=== PATIENT | male | born 1970 ===

== ENCOUNTER 2017-04-27 13:16 | Emergency (ER) | payer MEDICAID ==
[2017-04-27 13:34] VITALS: BP 142/80; PULSE 60; RESP 18; TEMP 97.9; O2SAT 99
[2017-04-27 13:49] VITALS: BMI 22.8
[2017-04-27] MEDS ORDERED: Erythromycin 0.5% Ophth Oint 1 APPLIC/3.5 G OD STA (14:07)
--- NOTE | 2017-04-27 14:10 | C.PDOC ---
History Of Present Illness 46 y/o male presents to ED with complaints of right eyelid swelling and redness for 5 days. 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 Patient denies vision changes, discharge, direct injury or any other complaints at this time. Time Seen by Provider: 04/27/17 13:51 Chief Complaint (Nursing): Allergic Reaction History Per: Patient History/Exam Limitations: no limitations Onset/Duration Of Symptoms: Days Current Symptoms Are (Timing): Still Present Possible Cause: Unknown Past Medical History Reviewed: Historical Data, Nursing Documentation, Vital Signs Vital Signs: Last Vital Signs Temp 97.9 F 04/27/17 13:32 Pulse 60 04/27/17 13:32 Resp 18 04/27/17 13:32 BP 142/80 04/27/17 13:32 Pulse Ox 99 04/29/17 14:00 - Medical History PMH: Diabetes, HTN, Hypercholesterolemia Surgical History: No Surg Hx - [facility] Procedures CLOSURE SKIN & SUBCUTANEOUS NEC (02/28/14) Family History: States: No Known Family Hx - Social History Hx Tobacco Use: No Hx Alcohol Use: Yes Hx Substance Use: No - Immunization History Hx Tetanus Toxoid Vaccination: No Hx Influenza Vaccination: No Hx Pneumococcal Vaccination: No Review Of Systems Except As Marked, All Systems Reviewed And Found Negative. Eyes: Positive for: Pain, Eyelid Inflammation, Redness Physical Exam - Physical Exam Appears: Non-toxic, No Acute Distress Skin: Warm, Dry, Rash ((+) macular, eythema rash to face adjacent to right eye, no proptosis, no cellultic process, no abscess ) Head: Atraumatic, Normacephalic Eye(s): bilateral: PERRL, EOMI, right: Eyelid Inflammation, left: Normal Inspection, Other (no ocular involvement ) Ear(s): Bilateral: Normal Throat: Normal, No Erythema, No Exudate Neck: Normal ROM, Supple Cardiovascular: Rhythm Regular Respiratory: Normal Breath Sounds, No Rales, No Rhonchi, No Wheezing Gastrointestinal/Abdominal: Soft, No Tenderness, No Guarding, No Rebound Back: Normal Inspection Neurological/Psych: Oriented x3 ED Course And Treatment O2 Sat by Pulse Oximetry: 99 (RA) Pulse Ox Interpretation: Normal Disposition Counseled Patient/Family Regarding: Diagnosis, Need For Followup, Rx Given - Disposition Referrals: [facility] [Outside] Disposition: HOME/ ROUTINE Disposition Time: 14:08 Condition: STABLE Additional Instructions: follow up with your doctor in 2 days call to make an appointment take medications as prescribed return to ER if symptoms worsens or progress Prescriptions: Erythromycin 0.5% [Ilytocin] 3.5 gm OD QID #1 tube Hydrocortisone 1% Cream [Cortizone 1% Cream] 1 appl TP BID PRN #1 tube PRN Reason: Rash predniSONE [predniSONE Tab] 50 mg PO DAILY #4 tab Instructions: Skin Rash Forms: [facility] (Swedish), Gen Discharge Inst Swedish Print Language: KYRGYZ - Clinical Impression Clinical Impression: Rash - Scribe Statement The provider has reviewed the documentation as recorded by the Oneil Jackson All medical record entries made by the Oneil were at my direction and personally dictated by me. I have reviewed the chart and agree that the record accurately reflects my personal performance of the history, physical exam, medical decision making, and the department course for this patient. I have also personally directed, reviewed, and agree with the discharge instructions and disposition.
[2017-04-27] MEDS ORDERED: Erythromycin 0.5% Ophth Oint 1 APPLIC/3.5 G ONE (14:26)
== END 2017-04-27 14:25 | disposition home or self-care (01) ==
LOC: C.ER 13:16
DX: R21 Rash and other nonspecific skin eruption (principal); E11.9 Type 2 diabetes mellitus without complications; E78.00 Pure hypercholesterolemia, unspecified; I10 Essential (primary) hypertension